=== PATIENT | male | born 1985 | race Caucasian/White ===

== ENCOUNTER 2016-07-14 23:11 | Inpatient (IN) | payer MEDICARE, OTHER ==
[~2016-07-14] VITALS: Ht 190.5 cm; Wt 68.0 kg
[2016-07-14] MEDS ORDERED: ABILIFY2 MG ORAL (23:15)
[2016-07-15] VITALS (13 sets, daily range): BP systolic 99–134; BP diastolic 47–83
[2016-07-15] MEDS ORDERED: Ketorolac 30mg Inj IV ONE (00:15)
[2016-07-15 00:28] LABS: EOSINOPHILS % (AUTO) 3.1 % (0.0-3.0); LYMPHOCYTES % (AUTO) 31.9 % (20.0-45.0); MEAN CORPUSCULAR HEMOGLOBIN 30.6 PG (27.0-31.0); MEAN CORPUSCULAR HGB CONC 33.8 G/DL (32.0-36.0); MEAN CORPUSCULAR VOLUME 91 FL (80-99); MEAN PLATELET VOLUME 8.1 FL (6.5-10.1); PLATELET COUNT 276 K/UL (150-450); RED BLOOD COUNT 5.22 M/UL (4.70-6.10); RED CELL DISTRIBUTION WIDTH 11.8 % (11.6-14.8); WHITE BLOOD COUNT 12.3 K/UL (4.8-10.8)
[2016-07-15 00:42] LABS: ALANINE AMINOTRANSFERASE 20 U/L (3-41); ALBUMIN/GLOBULIN RATIO 1.2 (1.0-2.7); ANION GAP 19 (5-15); ASPARTATE AMINO TRANSFERASE 25 U/L (5-40); CALCIUM 9.7 mg/dL (8.6-10.2); CARBON DIOXIDE 26 mEQ/L (20-30); CHLORIDE 94 mEQ/L (98-107); CREATININE 1.2 mg/dL (0.7-1.2); GLOMERULAR FILTRATION RATE > 60 mL/min (>60); HEMOLYSIS 40; LIPASE 23 U/L (< 60); POTASSIUM 4.1 mEQ/L (3.4-4.9); SODIUM 139 mEQ/L (135-145); TOTAL PROTEIN 7.9 g/dL (6.6-8.7)
--- NOTE | 2016-07-15 01:25 | Emergency Room Report ---
History of Present Illness General Chief Complaint: Abdominal Pain Source: Patient Present Illness HPI Patient present with complaints of left flank pain Ongoing for the past several hours Patient states that he was diagnosed with a kidney stone about 4 mm This was approximately 2 weeks ago Pain is 10 out of 10 Denies any chest pain or shortness of breath denies any diarrhea however he has had increased vomiting Doesn't have any pain associated with movement or rest denies any dysuria frequency denies any fevers Allergies: Coded Allergies: No Known Allergies (Unverified , 07/14/16) Patient History Past Medical History: see triage record Pertinent Family History: none Reviewed Nursing Documentation: PMH: Agreed, PSxH: Agreed Nursing Documentation-PMH Past Medical History: No History, Except For Review of Systems All Other Systems: negative except mentioned in HPI Physical Exam Vital Signs Date Time Temp Pulse Resp B/P Pulse Ox O2 Delivery O2 Flow Rate FiO2 07/14/16 23:09 98.2 100 16 150/90 97 Room Air Sp02 EP Interpretation: reviewed, normal General Appearance: moderate distress - Appears in acute pain Head: normocephalic, atraumatic Eyes: bilateral eye EOMI, bilateral eye PERRL ENT: normal pharynx, no angioedema Neck: full range of motion, supple, thyroid normal Respiratory: lungs clear, normal breath sounds Cardiovascular #1: regular rate, rhythm, no edema Gastrointestinal: soft, no mass, other - Colostomy bag in the left lower abdomen Genitourinary: CVA tenderness (R) Musculoskeletal: normal inspection Neurologic: alert, oriented x3, responsive, video control operator III-XII nml as tested Skin: no rash, warm/dry Lymphatic: no adenopathy Medical Decision Making Diagnostic Impression: Primary Impression: Obstructive uropathy ER Course With the history exam and presentation, multiple differentials considered, including but not limited to appendicitis, gastritis, kidney stone , cholecystitis, diverticulitis Patient's CT reveals an 11 mm stone the left side Patient was provided further pain medication IV hydration Patient did better however the pain continued Patient's urine sample otherwise does not show any obvious infectious pathology Blood work shows a white count of 12,000 which is mildly high Kidney functions otherwise appropriate patient was further hydrated and given the size and location of the kidney stone require admission for further care Labs Test 07/15/16 00:00 07/15/16 00:23 White Blood Count 12.3 K/UL (4.8-10.8) Red Blood Count 5.22 M/UL (4.70-6.10) Hemoglobin 16.0 G/DL (14.2-18.0) Hematocrit 47.3 % (42.0-52.0) Mean Corpuscular Volume 91 FL (80-99) Mean Corpuscular Hemoglobin 30.6 PG (27.0-31.0) Mean Corpuscular Hemoglobin Concent 33.8 G/DL (32.0-36.0) Red Cell Distribution Width 11.8 % (11.6-14.8) Platelet Count 276 K/UL (150-450) Mean Platelet Volume 8.1 FL (6.5-10.1) Neutrophils (%) (Auto) 56.0 % (45.0-75.0) Lymphocytes (%) (Auto) 31.9 % (20.0-45.0) Monocytes (%) (Auto) 8.0 % (1.0-10.0) Eosinophils (%) (Auto) 3.1 % (0.0-3.0) Basophils (%) (Auto) 1.0 % (0.0-2.0) Sodium Level 139 mEQ/L (135-145) Potassium Level 4.1 mEQ/L (3.4-4.9) Chloride Level 94 mEQ/L (98-107) Carbon Dioxide Level 26 mEQ/L (20-30) Anion Gap 19 (5-15) Blood Urea Nitrogen 14 mg/dL (7-23) Creatinine 1.2 mg/dL (0.7-1.2) Estimat Glomerular Filtration Rate > 60 mL/min (>60) Glucose Level 95 mg/dL (74-106) Calcium Level 9.7 mg/dL (8.6-10.2) Total Bilirubin 0.6 mg/dL (0.0-1.2) Aspartate Amino Transf (AST/SGOT) 25 U/L (5-40) Alanine Aminotransferase (ALT/SGPT) 20 U/L (3-41) Alkaline Phosphatase 115 U/L (40-129) Total Protein 7.9 g/dL (6.6-8.7) Albumin 4.4 g/dL (3.5-5.2) Globulin 3.5 g/dL Albumin/Globulin Ratio 1.2 (1.0-2.7) Lipase 23 U/L (< 60) Urine Color Yellow Urine Appearance Clear Urine pH 7 (4.5-8.0) Urine Specific [place] 1.010 (1.005-1.035) Urine Protein 1+ (NEGATIVE) Urine Glucose (UA) Negative (NEGATIVE) Urine Ketones Negative (NEGATIVE) Urine Occult Blood 2+ (NEGATIVE) Urine Nitrite Negative (NEGATIVE) Urine Bilirubin Negative (NEGATIVE) Urine Urobilinogen Normal MG/DL (0.0-1.0) Urine Leukocyte Esterase 1+ (NEGATIVE) Urine RBC 2-4 /HPF (0 - 0) Urine WBC 0-2 /HPF (0 - 0) Urine Squamous Epithelial Cells Few /LPF (NONE/OCC) Urine Bacteria Few /HPF (NONE) CT/MRI/US Diagnostic Results CT/MRI/US Diagnostic Results : Impression CT abdomen pelvis: Mild to moderate left hydro-uronephrosis with stone in the distal left ureter up to 11 mm Last Vital Signs Date Time Temp Pulse Resp B/P Pulse Ox O2 Delivery O2 Flow Rate FiO2 07/14/16 23:09 98.2 100 16 150/90 97 Room Air Status: improved Disposition: ADMITTED INPATIENT Condition: Serious SHERLY HAYNES D.O. Jul 15, 2016 01:25
[2016-07-15 01:48] LABS: APPEARANCE,URINE CLEAR; KETONES,URINE NEGATIVE (NEGATIVE); LEUKOCYTE ESTERASE ,URINE 1+ (NEGATIVE); NITRITE,URINE NEGATIVE (NEGATIVE); PH,URINE 7 (4.5-8.0); PROTEIN,URINE 1+ (NEGATIVE); UROBILINOGEN,URINE NORMAL MG/DL (0.0-1.0)
[2016-07-15 02:07] LABS: WBC,URINE 0-2 /HPF (0 - 0)
[2016-07-15 02:08] LABS: BACTERIA,URINE FEW /HPF; SQUAMOUS EPITHELIAL CELL,UR FEW /LPF (NONE/OCC)
[2016-07-15] MEDS ORDERED: Morphine Sulfate 4mg/ml Inj IVP ONE (02:15)
[2016-07-15] MEDS ORDERED: Mylanta II UD 30ml ORAL PRN (06:30)
[2016-07-15] MEDS ORDERED: Miralax 17gm pkt ORAL PRN (06:30)
[2016-07-15] MEDS ORDERED: Nitroglycerin Subl 0.4mg tab (Bottle Of 25) SL PRN (06:30)
[2016-07-15] MEDS: cefTRIAXone 1 GM in D5W 50 ML IVPB SCH (06:53)
[2016-07-15] MEDS: Morphine Sulfate 2mg/ml Inj IV PRN (06:54)
[2016-07-15] MEDS: Heparin 5000 units/ml inj SUBQ SCH ×3 (09:00→21:07)
[2016-07-15 10:53] LABS: APPEARANCE,URINE CLEAR; KETONES,URINE NEGATIVE (NEGATIVE); LEUKOCYTE ESTERASE ,URINE 1+ (NEGATIVE); NITRITE,URINE NEGATIVE (NEGATIVE); PH,URINE 6.5 (4.5-8.0); PROTEIN,URINE NEGATIVE (NEGATIVE); UROBILINOGEN,URINE NORMAL MG/DL (0.0-1.0)
[2016-07-15 11:18] LABS: BACTERIA,URINE FEW /HPF; RBC,URINE 0-2 /HPF (0 - 0); SQUAMOUS EPITHELIAL CELL,UR OCCASIONAL /LPF (NONE/OCC); WBC,URINE 0-2 /HPF (0 - 0)
--- NOTE | 2016-07-15 12:53 | Pre-Procedure Note/Attestation ---
Pre-Procedure Note/Attestation Complete Prior to Procedure Planned Procedure: left Procedure Narrative: cysto, left JJ stent Indications for Procedure Pre-Operative Diagnosis: left ureteral stone, left flank pain, left hydronephrosis Attestation I attest that I discussed the nature of the procedure; its benefits; risks and complications; and alternatives (and the risks and benefits of such alternatives ), prior to the procedure, with the patient (or the patient's legal dental sales representative). I attest that, if there was a reasonable possibility of needing a blood transfusion, the patient (or the patient's legal dental sales representative) was given the [facility] standardized written summary, pursuant to the Jamie Noreen Blood Safety Act ([place] Health and Safety Code # 1645, as amended). I attest that I re-evaluated the patient just prior to the surgery and that there has been no change in the patient's H&P, except as documented below: Casimiro Damian M.D. Jul 15, 2016 12:53
--- NOTE | 2016-07-15 12:59 | Consultation ---
History of Present Illness General Date patient seen: Jul 15, 2016 Time patient seen: 10:15 Chief Complaint: Abdominal Pain Reason for Consultation: left ureteral stone Present Illness HPI Acute left flank pain. Patient had a kidney stone several months ago. Last night noted severe left flank pain, nausea, vomiting. Dx with distal left ureteral stone, significant hydro. WBC elevated. Unable to manage conservatively in ER. Currently in a lot of pain. Allergies: Coded Allergies: No Known Allergies (Unverified , 07/14/16) Medication History Scheduled Aripiprazole* (Abilify*), 2 MG ORAL DAILY, (Reported) Patient History History Provided By: Patient Healthcare decision maker Resuscitation status Full Code Advanced Directive on File Past Medical/Surgical History Past Medical/Surgical History: (1) Anxiety and depression Review of Systems Constitutional: Reports: weakness Eye: Denies: acuity changes, blurred vision, discharge, double vision, eye pain , no symptoms, nose congestion, nose pain, other, see HPI, tearing ENT: Denies: ear discharge, ear pain, hearing loss, mouth pain, nasal discharge , no symptoms, nose congestion, nose pain, other, see HPI, throat pain, throat swelling Respiratory: Denies: LUND, cough, no symptoms, orthopnea, other, see HPI, shortness of breath, sputum, stridor, wheezing Cardiovascular: Denies: PND, chest pain, edema, no symptoms, other, palpitations, see HPI, syncope Gastrointestinal: Reports: abdominal pain, Denies: constipation, diarrhea, hematemesis, melena, nausea, no symptoms, other, see HPI, vomiting Genitourinary: Denies: discharge, dysuria, frequency, hematuria, incontinence, no symptoms, other, pain, retention, see HPI, urgency, vag bleed/dc Musculoskeletal: Denies: back pain, gout, joint pain, joint swelling, muscle pain, muscle stiffness, no symptoms, other, see HPI Skin: Denies: change in color, change in hair/nails, dryness, lesions, no symptoms, other, rash, see HPI Psychiatric: Denies: HI, SI, anxiety, depressed feelings, emotional problems, hallucinations, no symptoms, other, prior hx, see HPI Neurological: Denies: dizziness, focal weakness, headache, no symptoms, numbness, other, paresthesia, see HPI, seizure, syncope, tingling, tremors Endocrine: Denies: excessive sweating, flushing, increased thirst, increased urine, intolerance to temperature, no symptoms, other, see HPI, unexplained weight loss Hematologic/Lymphatic: Denies: anemia, blood clots, diathesis, easy bleeding, easy bruising, no symptoms, other, see HPI, swollen glands Physical Exam General Appearance: moderate distress Respiratory/Chest: lungs clear Cardiovascular/Chest: normal rate Abdomen: non tender, soft Last 24 Hour Vital Signs Date Time Temp Pulse Resp B/P Pulse Ox O2 Delivery O2 Flow Rate FiO2 07/15/16 08:00 97.7 54 17 99/70 97 Room Air 07/15/16 04:00 97.7 50 20 113/54 100 Room Air 07/15/16 03:15 97.7 55 20 122/62 97 Room Air 07/15/16 03:03 98.4 07/15/16 03:02 98.4 72 16 134/82 98 Room Air 07/15/16 03:00 97.7 57 18 122/62 96 Room Air 07/15/16 02:23 98.4 72 16 134/82 98 Room Air 07/15/16 02:09 98.2 07/14/16 23:09 98.2 100 16 150/90 97 Room Air Intake and Output 07/14/16 07/15/16 19:00 07:00 Intake Total 1000 ml Balance 1000 ml Intake IV Total 1000 ml # Voids 1 Laboratory Tests Test 07/15/16 00:00 07/15/16 00:23 07/15/16 10:13 White Blood Count 12.3 K/UL (4.8-10.8) H Red Blood Count 5.22 M/UL (4.70-6.10) Hemoglobin 16.0 G/DL (14.2-18.0) Hematocrit 47.3 % (42.0-52.0) Mean Corpuscular Volume 91 FL (80-99) Mean Corpuscular Hemoglobin 30.6 PG (27.0-31.0) Mean Corpuscular Hemoglobin Concent 33.8 G/DL (32.0-36.0) Red Cell Distribution Width 11.8 % (11.6-14.8) Platelet Count 276 K/UL (150-450) Mean Platelet Volume 8.1 FL (6.5-10.1) Neutrophils (%) (Auto) 56.0 % (45.0-75.0) Lymphocytes (%) (Auto) 31.9 % (20.0-45.0) Monocytes (%) (Auto) 8.0 % (1.0-10.0) Eosinophils (%) (Auto) 3.1 % (0.0-3.0) H Basophils (%) (Auto) 1.0 % (0.0-2.0) Sodium Level 139 mEQ/L (135-145) Potassium Level 4.1 mEQ/L (3.4-4.9) Chloride Level 94 mEQ/L (98-107) L Carbon Dioxide Level 26 mEQ/L (20-30) Anion Gap 19 (5-15) H Blood Urea Nitrogen 14 mg/dL (7-23) Creatinine 1.2 mg/dL (0.7-1.2) Estimat Glomerular Filtration Rate > 60 mL/min (>60) Glucose Level 95 mg/dL (74-106) Calcium Level 9.7 mg/dL (8.6-10.2) Total Bilirubin 0.6 mg/dL (0.0-1.2) Aspartate Amino Transf (AST/SGOT) 25 U/L (5-40) Alanine Aminotransferase (ALT/SGPT) 20 U/L (3-41) Alkaline Phosphatase 115 U/L (40-129) Total Protein 7.9 g/dL (6.6-8.7) Albumin 4.4 g/dL (3.5-5.2) Globulin 3.5 g/dL Albumin/Globulin Ratio 1.2 (1.0-2.7) Lipase 23 U/L (< 60) Urine Color Yellow Yellow Urine Appearance Clear Clear Urine pH 7 (4.5-8.0) 6.5 (4.5-8.0) Urine Specific [place] 1.010 (1.005-1.035) 1.015 (1.005-1.035) Urine Protein 1+ (NEGATIVE) H Negative (NEGATIVE) Urine Glucose (UA) Negative (NEGATIVE) Negative (NEGATIVE) Urine Ketones Negative (NEGATIVE) Negative (NEGATIVE) Urine Occult Blood 2+ (NEGATIVE) H 1+ (NEGATIVE) H Urine Nitrite Negative (NEGATIVE) Negative (NEGATIVE) Urine Bilirubin Negative (NEGATIVE) Negative (NEGATIVE) Urine Urobilinogen Normal MG/DL (0.0-1.0) Normal MG/DL (0.0-1.0) Urine Leukocyte Esterase 1+ (NEGATIVE) H 1+ (NEGATIVE) H Urine RBC 2-4 /HPF (0 - 0) H 0-2 /HPF (0 - 0) H Urine WBC 0-2 /HPF (0 - 0) 0-2 /HPF (0 - 0) Urine Squamous Epithelial Cells Few /LPF (NONE/OCC) Occasional /LPF Urine Bacteria Few /HPF (NONE) Few /HPF (NONE) Height (Feet): 6 Height (Inches): 3.00 Weight (Pounds): 150 Medications Current Medications Medications (Trade) Dose Ordered Sig/Tylor Route PRN Reason Start Time Stop Time Status Last Admin Dose Admin Acetaminophen (Tylenol) 650 mg Q4H PRN ORAL fever 07/15/16 06:30 08/14/16 06:29 Al Hydroxide/Mg Hydroxide (Mylanta II) 30 ml Q6H PRN ORAL dyspepsia 07/15/16 06:30 08/14/16 06:29 Ceftriaxone Sodium/Dextrose (Rocephin/D5W 50ml) 50 ml @ 100 mls/hr Q24H IVPB 07/15/16 06:30 07/22/16 06:29 07/15/16 06:53 Dextrose (Dextrose 50%) STAT PRN IV Hypoglycemia 07/15/16 06:30 08/14/16 06:29 Dextrose/Sodium Chloride (D5 0.45% NS) 1,000 ml @ 75 mls/hr [id number] IV 07/15/16 17:40 08/14/16 17:39 Diphenhydramine HCl (Benadryl) 25 mg Q6H PRN ORAL Itching/Pruritis 07/15/16 06:30 08/14/16 06:29 Heparin Sodium (Porcine) (Heparin 5000 units/ml) 5,000 units EVERY 12 HOURS SUBQ 07/15/16 09:00 08/14/16 08:59 Morphine Sulfate (Morphine Sulfate) 2 mg Q4H PRN IVP Pain (Pain Scale 4-6) 07/15/16 06:30 07/22/16 06:29 Morphine Sulfate 4 mg 4 mg Q2H PRN IV For Pain (7-10) 07/15/16 06:30 07/22/16 06:29 07/15/16 06:54 Nitroglycerin (Ntg) 0.4 mg Q5M X 3 DOSES PRN SL Prn Chest Pain 07/15/16 06:30 08/14/16 06:29 Ondansetron HCl (Zofran) 4 mg Q6H PRN IVP Nausea & Vomiting 07/15/16 06:30 2 06:29 Polyethylene Glycol (Miralax) 17 gm HSPRN PRN ORAL Constipation 07/15/16 06:30 08/14/16 06:29 Temazepam (Restoril) 15 mg HSPRN PRN ORAL Insomnia 07/15/16 06:30 07/22/16 06:[address] Abd/pelvis: left distal ureteral stone, 4 x 8 mm, left hydro Assessment/Plan Status: stable Assessment/Plan 31 yo male with severe left flank pain, large distal ureteral stone. Failed conservative management in ER. Counseled patient on intervention options. Willing to proceed with urgent left stent placement with definitive treatment at a later time. 1. cysto left JJ stent today 2. Casimiro Mcclain M.D. Jul 15, 2016 12:59
[2016-07-15] MEDS ORDERED: LR 1000ml ONE (13:00)
[2016-07-15] MEDS ORDERED: NS Irrig 4000ml IRRIG ONE ×2 (13:00→13:10)
[2016-07-15] MEDS ORDERED: fentaNYL 100 mcg/2 mL IV ONE (13:00)
[2016-07-15] MEDS ORDERED: Propofol 10mg/ml 20ml IV ONE ×2 (13:00→13:11)
[2016-07-15] MEDS ORDERED: Midazolam 2mg/2ml Inj ONE (13:00)
[2016-07-15] MEDS ORDERED: Iothalamate Meglumine 60% 30ML INJ ONE (13:44)
[2016-07-15] MEDS ORDERED: Isovue-M 300 INJ ONE (13:44)
[2016-07-15] MEDS ORDERED: LR 1000ml 1,000 ML IVLG SCH (13:50)
--- NOTE | 2016-07-15 13:55 | Anethesia Preoperative Eval ---
Anesthesia Pre-op PMH/ROS General Date of Evaluation: Jul 15, 2016 Time of Evaluation: 13:10 Anesthesiologist: Tammy ASA Score: ASA 2 Mallampati Score Class I : Soft palate, uvula, fauces, pillars visible Class II: Soft palate, uvula, fauces visible Class III: Soft palate, base of uvula visible Class IV: Only hard plate visible Mallampati Classification: Class I Surgeon: Rickie Diagnosis: Obstructive uropathy Surgical Procedure: Cystoscopy, ureteral stent placement Social History: current smoker Allergies: Coded Allergies: No Known Allergies (Unverified , 07/14/16) Medications: see eMAR Past Medical History Cardiovascular: Denies: CAD, HTN, [place], arrhythmia, other, valve dz Pulmonary: Denies: COPD, ZOIE, asthma, other Gastrointestinal/Genitourinary: Reports: other - Renal lithiasis, Denies: CRI, ESRD, GERD Neurologic/Psychiatric: Reports: depression/anxiety, Denies: CVA, TIA, dementia, other Endocrine: Denies: DM, hypothyroidism, other, steroids HEENT: Denies: [place] (L), [place] (R), cataract (L), cataract (R), glaucoma, other Hematology/Immune: Denies: DVT, anemia, bleeding disorder, other Musculoskeletal/Integumentary: Denies: DDD, DJD, OA, RA, edema, other PMH Narrative: Renal lithiasis, depression PSxH Narrative: Colon resection and stoma Anesthesia Pre-op Phys. Exam Physician Exam Last Vital Signs Date Time Temp Pulse Resp B/P Pulse Ox O2 Delivery O2 Flow Rate FiO2 07/15/16 08:00 97.7 54 17 99/70 97 Room Air Constitutional: NAD Neurologic: CN 2-12 intact Cardiovascular: RRR, no M/R/G Respiratory: CTA Gastrointestinal: S/NT/ND Airway Exam Mallampati Score: Class I MO: full ROM: full Teeth: intact Anesthesia Pre-op A/P Labs Hematology Test 07/15/16 00:00 White Blood Count 12.3 K/UL (4.8-10.8) H Red Blood Count 5.22 M/UL (4.70-6.10) Hemoglobin 16.0 G/DL (14.2-18.0) Hematocrit 47.3 % (42.0-52.0) Mean Corpuscular Volume 91 FL (80-99) Mean Corpuscular Hemoglobin 30.6 PG (27.0-31.0) Mean Corpuscular Hemoglobin Concent 33.8 G/DL (32.0-36.0) Red Cell Distribution Width 11.8 % (11.6-14.8) Platelet Count 276 K/UL (150-450) Mean Platelet Volume 8.1 FL (6.5-10.1) Neutrophils (%) (Auto) 56.0 % (45.0-75.0) Lymphocytes (%) (Auto) 31.9 % (20.0-45.0) Monocytes (%) (Auto) 8.0 % (1.0-10.0) Eosinophils (%) (Auto) 3.1 % (0.0-3.0) H Basophils (%) (Auto) 1.0 % (0.0-2.0) Chemistry Test 07/15/16 00:00 Sodium Level 139 mEQ/L (135-145) Potassium Level 4.1 mEQ/L (3.4-4.9) Chloride Level 94 mEQ/L (98-107) L Carbon Dioxide Level 26 mEQ/L (20-30) Anion Gap 19 (5-15) H Blood Urea Nitrogen 14 mg/dL (7-23) Creatinine 1.2 mg/dL (0.7-1.2) Estimat Glomerular Filtration Rate > 60 mL/min (>60) Glucose Level 95 mg/dL (74-106) Calcium Level 9.7 mg/dL (8.6-10.2) Total Bilirubin 0.6 mg/dL (0.0-1.2) Aspartate Amino Transf (AST/SGOT) 25 U/L (5-40) Alanine Aminotransferase (ALT/SGPT) 20 U/L (3-41) Alkaline Phosphatase 115 U/L (40-129) Total Protein 7.9 g/dL (6.6-8.7) Albumin 4.4 g/dL (3.5-5.2) Globulin 3.5 g/dL Albumin/Globulin Ratio 1.2 (1.0-2.7) Lipase 23 U/L (< 60) Risk Assessment & Plan Assessment: Obstructive uropathy Plan: GA, LMA Status Change Before Surgery: No Pre-Antibiotics Drug: Ancef Given Within 1 Hr of Incision: Yes Time Given: 13:30 LUDMILA ANAYA M.D. Jul 15, 2016 13:55
--- NOTE | 2016-07-15 13:56 | Immediate Post-Op Evaluation ---
Immediate Post-Op Evalulation Immediate Post-Op Evalulation Procedure: Cystoscopy, ureteral stent placement Date of Evaluation: Jul 15, 2016 Time of Evaluation: 14:28 IV Fluids: 600 Blood Pressure Systolic: 106 Blood Pressure Diastolic: 56 Pulse Rate: 74 Respiratory Rate: 15 O2 Sat by Pulse Oximetry: 100 Temperature (Fahrenheit): 97.7 Pain Score (1-10): 0 Nausea: No Vomiting: No Complications No complication Patient Status: reacts, patent, none Hydration Status: adequate Drug: Ancef Given Within 1 Hr of Incision: Yes Time Given: 13:30 LUDMILA ANAYA M.D. Jul 15, 2016 13:56
[2016-07-15] MEDS ORDERED: LORazepam Inj 2mg/ml 1ml IV PRN (14:00)
[2016-07-15] MEDS ORDERED: Hydromorphone 0.5mg/0.5ml inj IVP PRN (14:00)
--- NOTE | 2016-07-15 14:07 | Brief Operative Note ---
Immediate Post Operative Note Operative Note Pre-op Diagnosis: left ureteral stone, left flank pain, left hydronephrosis Procedure: cysto left ureteral stent placement, left retrograde pyelogram Post-op Diagnosis: same as pre-op Findings: consistent w/pre-op dx studies Surgeon: francisco j Anesthesia: general Specimen: none Complications: none Condition: stable Estimated Blood Loss: none Drains: other - 6x24 JJ stent Implant(s) used?: Yes Casimiro Damian M.D. Jul 15, 2016 14:07
--- NOTE | 2016-07-15 14:35 | History and Physical ---
History of Present Illness General Date patient seen: Jul 15, 2016 Reason for Hospitalization: Abdominal Pain Present Illness HPI The patient is a 31-year-old male, who presents to ED complaining of left flank pain that has been ongoing for the past several hours. ER evaluation reveals a kidney stone approximately two weeks ago, pain is 10/10, and also with increased vomiting. Evaluation at ED revealed elevated WBC. CAT scan of the abdomen showed a 11 mm stone on the left ureter with hydronephrosis. Allergies: Coded Allergies: No Known Allergies (Unverified , 07/14/16) Medication History Scheduled Aripiprazole* (Abilify*), 2 MG ORAL DAILY, (Reported) Patient History Healthcare decision maker Resuscitation status Full Code Advanced Directive on File Review of Systems Constitutional: Reports: malaise, weakness Gastrointestinal: Reports: abdominal pain, nausea, vomiting Musculoskeletal: Reports: back pain, muscle pain, muscle stiffness All Other Systems: negative except mentioned in HPI Physical Exam General Appearance: WD/WN Lines, tubes and drains: peripheral HEENT: normocephalic, atraumatic Neck: non-tender, normal alignment Respiratory/Chest: chest wall non-tender, lungs clear Cardiovascular/Chest: normal peripheral pulses, normal rate Abdomen: normal bowel sounds Genitourinary/Rectal: normal genital exam, normal prostate exam Extremities: non-tender Last 24 Hour Vital Signs Date Time Temp Pulse Resp B/P Pulse Ox O2 Delivery O2 Flow Rate FiO2 07/15/16 14:25 56 12 105/47 100 Simple Mask 6.0 07/15/16 14:23 74 15 100 07/15/16 14:18 97.8 52 13 117/83 100 Simple Mask 6.0 07/15/16 08:00 97.7 54 17 99/70 97 Room Air 07/15/16 04:00 97.7 50 20 113/54 100 Room Air 07/15/16 03:15 97.7 55 20 122/62 97 Room Air 07/15/16 03:03 98.4 07/15/16 03:02 98.4 72 16 134/82 98 Room Air 07/15/16 03:00 97.7 57 18 122/62 96 Room Air 07/15/16 02:23 98.4 72 16 134/82 98 Room Air 07/15/16 02:09 98.2 07/14/16 23:09 98.2 100 16 150/90 97 Room Air Intake and Output 07/14/16 07/15/16 19:00 07:00 Intake Total 1000 ml Balance 1000 ml Intake IV Total 1000 ml # Voids 1 Laboratory Tests Test 07/15/16 00:00 07/15/16 00:23 07/15/16 10:13 White Blood Count 12.3 K/UL (4.8-10.8) H Red Blood Count 5.22 M/UL (4.70-6.10) Hemoglobin 16.0 G/DL (14.2-18.0) Hematocrit 47.3 % (42.0-52.0) Mean Corpuscular Volume 91 FL (80-99) Mean Corpuscular Hemoglobin 30.6 PG (27.0-31.0) Mean Corpuscular Hemoglobin Concent 33.8 G/DL (32.0-36.0) Red Cell Distribution Width 11.8 % (11.6-14.8) Platelet Count 276 K/UL (150-450) Mean Platelet Volume 8.1 FL (6.5-10.1) Neutrophils (%) (Auto) 56.0 % (45.0-75.0) Lymphocytes (%) (Auto) 31.9 % (20.0-45.0) Monocytes (%) (Auto) 8.0 % (1.0-10.0) Eosinophils (%) (Auto) 3.1 % (0.0-3.0) H Basophils (%) (Auto) 1.0 % (0.0-2.0) Sodium Level 139 mEQ/L (135-145) Potassium Level 4.1 mEQ/L (3.4-4.9) Chloride Level 94 mEQ/L (98-107) L Carbon Dioxide Level 26 mEQ/L (20-30) Anion Gap 19 (5-15) H Blood Urea Nitrogen 14 mg/dL (7-23) Creatinine 1.2 mg/dL (0.7-1.2) Estimat Glomerular Filtration Rate > 60 mL/min (>60) Glucose Level 95 mg/dL (74-106) Calcium Level 9.7 mg/dL (8.6-10.2) Total Bilirubin 0.6 mg/dL (0.0-1.2) Aspartate Amino Transf (AST/SGOT) 25 U/L (5-40) Alanine Aminotransferase (ALT/SGPT) 20 U/L (3-41) Alkaline Phosphatase 115 U/L (40-129) Total Protein 7.9 g/dL (6.6-8.7) Albumin 4.4 g/dL (3.5-5.2) Globulin 3.5 g/dL Albumin/Globulin Ratio 1.2 (1.0-2.7) Lipase 23 U/L (< 60) Urine Color Yellow Yellow Urine Appearance Clear Clear Urine pH 7 (4.5-8.0) 6.5 (4.5-8.0) Urine Specific [place] 1.010 (1.005-1.035) 1.015 (1.005-1.035) Urine Protein 1+ (NEGATIVE) H Negative (NEGATIVE) Urine Glucose (UA) Negative (NEGATIVE) Negative (NEGATIVE) Urine Ketones Negative (NEGATIVE) Negative (NEGATIVE) Urine Occult Blood 2+ (NEGATIVE) H 1+ (NEGATIVE) H Urine Nitrite Negative (NEGATIVE) Negative (NEGATIVE) Urine Bilirubin Negative (NEGATIVE) Negative (NEGATIVE) Urine Urobilinogen Normal MG/DL (0.0-1.0) Normal MG/DL (0.0-1.0) Urine Leukocyte Esterase 1+ (NEGATIVE) H 1+ (NEGATIVE) H Urine RBC 2-4 /HPF (0 - 0) H 0-2 /HPF (0 - 0) H Urine WBC 0-2 /HPF (0 - 0) 0-2 /HPF (0 - 0) Urine Squamous Epithelial Cells Few /LPF (NONE/OCC) Occasional /LPF Urine Bacteria Few /HPF (NONE) Few /HPF (NONE) Height (Feet): 6 Height (Inches): 3.00 Weight (Pounds): 150 Medications Current Medications Medications (Trade) Dose Ordered Sig/Tylor Route PRN Reason Start Time Stop Time Status Last Admin Dose Admin Acetaminophen (Tylenol) 650 mg Q4H PRN ORAL fever 07/15/16 06:30 2 06:29 Al Hydroxide/Mg Hydroxide (Mylanta II) 30 ml Q6H PRN ORAL dyspepsia 07/15/16 06:30 2 06:29 Ceftriaxone Sodium/Dextrose (Rocephin/D5W 50ml) 50 ml @ 100 mls/hr Q24H IVPB 07/15/16 06:30 07/22/16 06:29 07/15/16 06:53 Dextrose (Dextrose 50%) STAT PRN IV Hypoglycemia 07/15/16 06:30 08/14/16 06:29 Dextrose/Sodium Chloride (D5 0.45% NS) 1,000 ml @ 75 mls/hr [id number] IV 07/15/16 17:40 08/14/16 17:39 Diphenhydramine HCl (Benadryl) 25 mg Q6H PRN ORAL Itching/Pruritis 07/15/16 06:30 08/14/16 06:29 Heparin Sodium (Porcine) (Heparin 5000 units/ml) 5,000 units EVERY 12 HOURS SUBQ 07/15/16 09:00 08/14/16 08:59 Hydromorphone HCl (Dilaudid) 0.5 mg Q15M PRN IVP Severe Pain (Pain Scale 7-10) 07/15/16 14:00 UNV Lactated Ringer's (Lactated Ringer's 1000ml) 1,000 ml @ 10 mls/hr Q24H IVLG 07/15/16 13:50 07/15/16 15:49 UNV Lorazepam (Ativan 2mg/ml 1ml) 0.5 mg Q15M PRN IV For Anxiety 07/15/16 14:00 UNV Morphine Sulfate (Morphine Sulfate) 2 mg Q4H PRN IVP Pain (Pain Scale 4-6) 07/15/16 06:30 07/22/16 06:29 Morphine Sulfate 4 mg 4 mg Q2H PRN IV For Pain (7-10) 07/15/16 06:30 07/22/16 06:29 07/15/16 06:54 Nitroglycerin (Ntg) 0.4 mg Q5M X 3 DOSES PRN SL Prn Chest Pain 07/15/16 06:30 08/14/16 06:29 Ondansetron HCl (Zofran) 4 mg Q6H PRN IVP Nausea & Vomiting 07/15/16 06:30 08/14/16 06:29 Ondansetron HCl 4 mg 4 mg Q1H PRN IVP Nausea & Vomiting 07/15/16 14:00 UNV Phenazopyridine HCl (Pyridium) 200 mg THREE TIMES A DAY PRN ORAL dysuria 07/15/16 18:00 2/9/17 17:59 Polyethylene Glycol (Miralax) 17 gm HSPRN PRN ORAL Constipation 07/15/16 06:30 08/14/16 06:29 Temazepam (Restoril) 15 mg HSPRN PRN ORAL Insomnia 07/15/16 06:30 07/22/16 06:29 Assessment/Plan Problem List: (1) Obstructive uropathy ICD Codes: N13.9 - Obstructive and reflux uropathy, unspecified SNOMED: 8123423 (2) Anxiety and depression ICD Codes: F41.9 - Anxiety disorder, unspecified; F32.9 - Major depressive disorder, single episode, unspecified SNOMED: 912095768 Status: stable, progressing Assessment/Plan iv hydration IV narcotics pain control evaluation check electrolytes AMY ZAMAN Jul 15, 2016 14:35
--- NOTE | 2016-07-15 15:01 | Diagnostic Imaging Report ---
Indication: Pain Comparison: None Findings: Fluoroscopic images showing placement of a left ureteral stent on multiple images. Both proximal and distal ends appear in good position. Impression: Retrograde placement of a double-J ureteral stent on the left side.
[2016-07-15] MEDS: D5 1/2NS 1,000 ML IV SCH (17:54)
[2016-07-15] MEDS: Morphine Sulfate 2mg/ml Inj IVP PRN ×2 (17:56→22:25)
[2016-07-15] MEDS ORDERED: Phenazopyridine 200mg tab ORAL PRN (18:00)
[2016-07-16] VITALS: BP 110/54
[2016-07-16] MEDS: Morphine Sulfate 2mg/ml Inj IV PRN (02:35)
[2016-07-16 04:00] VITALS: BP 117/75
[2016-07-16] MEDS: cefTRIAXone 1 GM in D5W 50 ML IVPB SCH (05:12)
--- NOTE | 2016-07-16 05:57 | Operative Note - Dictated ---
DATE OF OPERATION: 07/15/2016 PRIMARY SURGEON: Casimiro Damian M.D. PREOPERATIVE DIAGNOSES: Left ureteral stone with flank pain, nausea, and vomiting. POSTOPERATIVE DIAGNOSES: Left ureteral stone with flank pain, nausea, and vomiting. PROCEDURE PERFORMED: Cystoscopy with left retrograde pyelogram and left double-J stent placement. ANESTHESIA: General. EBL: Minimal. COMPLICATIONS: None. DRAINS: A 6 x 24 double-J stent. SPECIMEN: None. PREOPERATIVE HISTORY: The patient is a very pleasant 31-year-old gentleman with a slightly strange affect, possibly due to pain. He was admitted to the hospital for severe left flank pain, nausea, and vomiting from the 4 x 8 mm distal ureteral stone. The patient has failed conservative management. He was admitted for intervention and pain control and IV rehydration. The patient was counseled on risks and benefits of intervention, risks including, but not limited to bleeding, infection, bladder injury, and ureteral injury. He was made clear that persistent obstruction of his kidney with resultant renal failure and potentially pyelonephritis and possible sepsis. The patient was nervous, but understood the risks and was willing to proceed with the stent placement. He understood that a second procedure will most likely be required for appropriate lithotripsy as the stone is quite large and may not pass the stent alone. The patient understands that this would be a temporizing measure allowing him to go home and come back for an elective procedure at a later time. The patient understood the risks and benefits of the procedure. Risks including, but not limited to bleeding, infection, bladder injury, ureteral injury, urethral injury, need for further surgery. The patient understood the risks, signed the consent, was taken to the operating room. OPERATIVE PROCEDURE: The patient was brought to the operating room where general anesthesia was achieved easily. He is placed in the dorsal lithotomy position. All pressure points were padded. The perineum was prepped and draped in sterile fashion. He received 1 g of IV Ancef as preoperative antibiotics. A 21-Turkmen cystoscope sheath was placed. The anterior urethra was normal. The posterior urethra was normal. Bladder was entered showing some mild mucus, but no bleeding areas, tumors, masses, or lesions were seen. Political Analyst fluoroscopy revealed no obvious stone fragments in the pelvis or in the area of the renal fossa. The left ureteral orifice was intubated with a 6-Turkmen ureteral catheter. Retrograde pyelogram that is not showing a J hooking distal intravesical ureter with immediate hydronephrosis and a large filling defect noted in the distal ureter likely to be the stone. A 0.35 Glidewire was used to navigate beyond the stone and coiled in the upper collecting system. The ureteral catheter was exchanged a 6 x 24 double-J stent was then advanced up to the collecting system with excellent coil was seen at the fluoroscopy and an excellent coil was seen under direct vision via camera after the wire was removed. The stent started to drain immediately debris ____ urine. The wire was removed. Bladder was emptied and the scope was removed. The patient tolerated the procedure well. He was woken up and taken to recovery room in stable fashion. I was present for the entire procedure. All instrument counts were correct at the end of the case. PLAN: 1. The patient will be observed today. 2. Should be able to go home tomorrow. 3. Followup in 1 week to assess passage of stone and discuss definitive lithotripsy plans. Casimiro Damian DR: Kandi JOB#: [id number] CC:
[2016-07-16 07:18] LABS: ALANINE AMINOTRANSFERASE 12 U/L (3-41); ALBUMIN/GLOBULIN RATIO 1.1 (1.0-2.7); AMYLASE 62 U/L (10-110); ANION GAP 10 (5-15); ASPARTATE AMINO TRANSFERASE 15 U/L (5-40); CALCIUM 8.8 mg/dL (8.6-10.2); CARBON DIOXIDE 30 mEQ/L (20-30); CHLORIDE 101 mEQ/L (98-107); GLOMERULAR FILTRATION RATE > 60 mL/min (>60); HEMOLYSIS 3; LIPASE 19 U/L (< 60); POTASSIUM 4.6 mEQ/L (3.4-4.9); SODIUM 141 mEQ/L (135-145); TOTAL PROTEIN 6.6 g/dL (6.6-8.7)
--- NOTE | 2016-07-16 07:19 | 48 Hour Post Anesthesia Eval ---
Post Anesthesia Evaluation Procedure: Cystoscopy, ureteral stent placement Date of Evaluation: Jul 16, 2016 Time of Evaluation: 07:03 Blood Pressure Systolic: 117 0: 75 Pulse Rate: 45 Respiratory Rate: 18 Temperature (Fahrenheit): 96.8 O2 Sat by Pulse Oximetry: 100 Airway: patent Nausea: No Vomiting: No Pain Intensity: 2 Hydration Status: adequate Cardiopulmonary Status: Stable Mental Status/LOC: patient returned to baseline Follow-up Care/Observations: 0 Post-Anesthesia Complications: 0 Follow-up care needed: N/A Bonilla Manzanares MD Jul 16, 2016 07:19
[2016-07-16 07:25] LABS: BASOPHILS % (AUTO) 0.9 % (0.0-2.0); EOSINOPHILS % (AUTO) 3.6 % (0.0-3.0); LYMPHOCYTES % (AUTO) 35.3 % (20.0-45.0); MEAN CORPUSCULAR HEMOGLOBIN 30.4 PG (27.0-31.0); MEAN CORPUSCULAR HGB CONC 32.6 G/DL (32.0-36.0); MEAN CORPUSCULAR VOLUME 93 FL (80-99); MEAN PLATELET VOLUME 8.9 FL (6.5-10.1); MONOCYTES % (AUTO) 9.5 % (1.0-10.0); NEUTROPHILS % (AUTO) 50.7 % (45.0-75.0); PLATELET COUNT 223 K/UL (150-450); RED BLOOD COUNT 4.22 M/UL (4.70-6.10); WHITE BLOOD COUNT 8.1 K/UL (4.8-10.8)
[2016-07-16] MEDS: D5 1/2NS 1,000 ML IV SCH (08:17)
[2016-07-16] MEDS: Morphine Sulfate 2mg/ml Inj IVP PRN (08:17)
[2016-07-16] MEDS: Heparin 5000 units/ml inj SUBQ SCH (08:18)
[2016-07-16 08:26] VITALS: BP 120/74
--- NOTE | 2016-07-17 12:02 | Discharge Summary ---
Discharge Summary Hospital Course Date of Admission Jul 15, 2016 at 01:52 Date of Discharge Jul 16, 2016 at 12:15 Admitting Diagnosis obstructive uropathy HPI Eliseo Abdi is a 31 year old male who was admitted on Jul 15, 2016 at 01:52 for Obstructive Uropathy Hospital Course [id number] Discharge Discharge Disposition Patient was discharged to Home (01) Discharge Diagnoses: Nellie Cordoba NP Jul 17, 2016 12:02
--- NOTE | 2016-07-17 19:18 | Discharge Summary 2 SIG ---
DATE OF ADMISSION: 07/15/2016 DATE OF DISCHARGE: 07/16/2016 BRIEF HOSPITAL COURSE: The patient is a 31-year-old male, who presented to ED complaining of left flank pain that has been ongoing for the past several hours. He was diagnosed with a kidney stone approximately two weeks ago, pain is 10/10, and also with increased vomiting. Evaluation at ED revealed elevated WBC. CAT scan of the abdomen showed a 11 mm stone on the left ureter with hydronephrosis. He was given hydration and given the size and location of kidney stone, was admitted for further care. Dr. Damian was consulted and underwent a cystoscopy with left retrograde pyelogram and ureteral stent placement on 07/15/2016. Discussed, a second procedure will most likely be required for appropriate lithotripsy. Stone is quite large and may not pass the stent alone. The procedure was a temporary measure for an elective procedure at a later time. He tolerated the procedure well and was discharged home following day due to rapid and unexpected improvement in the patient's symptoms. He was advised to follow up in one week to assess passage of stone and to discuss definite lithotripsy plans. FINAL DIAGNOSIS: Abdominal pain secondary to left distal ureteral stone with left hydronephrosis status post cystoscopy with left retrograde pyelogram and left double-J stent placement. Sridhar Rodriguez M.D. I have been assigned to dictate discharge summary on this account. I was not involved in the patient's management. Nellie Cordoba N.P. DR: SIERRA JOB#: [id number] CC: LYNNE
--- NOTE | 2016-07-22 14:57 | Diagnostic Imaging Report ---
Indications: Abdominal pain Technique: Continuous helical CT imaging of the abdomen and pelvis was performed with automatic exposure control on a Siemens sensation [address] scanner. Axial, coronal, and sagittal images were reconstructed at 3 mm slice thickness. No oral or IV contrast was administered per requesting physician's order, despite no contraindications listed in either submitted clinical data or tech note.. CTDI volume(s): 10 mGy Total DLP: 469 mGy-cm Findings: Comparison: None. 5 x 11 mm stone distal aspect left ureter several centimeters above the ureterovesical junction. Left ureter and renal collecting system above this mildly dilated with mild surrounding stranding. No additional stones bilaterally. Right renal collecting system and ureter nondilated. Urinary bladder partially distended, unremarkable.. The appendix is unremarkable. The gastrointestinal tract is normal in caliber. Left lower quadrant colostomy. No extraluminal gas or fluid collections are demonstrated. Remainder of visualized abdominopelvic anatomy demonstrates no other obvious abnormality, though lack of oral and IV contrast limits evaluation. Lung bases and adjacent pleural surfaces are clear. No focal skeletal abnormalities demonstrated. IMPRESSION: 5 x 11 mm obstructing stone distal left ureter with mild hydronephrosis and perinephric stranding. Superimposed infection not excludable.. Unremarkable appendix -- no evidence of acute appendicitis. No other evidence of acute abdominopelvic disease. Lack of oral and IV contrast limits evaluation, however, and subtle abnormalities may be missed. Repeat CT scan with full oral and IV contrast preparation recommended for more complete evaluation, as clinically indicated. Left lower quadrant colostomy. Correlate with surgical history. This correlates with [facility] preliminary report. The CT scanner at [facility] is accredited by the [employer] and the scans are performed using protocols designed to limit radiation exposure to as low as reasonably achievable to attain images of sufficient resolution adequate for diagnostic evaluation.
[2016-08-12] MEDS ORDERED: ABILIFY15 MG ORAL (13:54)
== END 2016-07-16 12:15 | disposition home or self-care (01) | DRG 694 ==
LOC: EDBD 23:11 → EMR 23:54 → 3E 07-15 01:52 → EDBEDREQ 07-15 02:14
DX: N13.2 Hydronephrosis with renal and ureteral calculous obstruction (principal); N20.2 Calculus of kidney with calculus of ureter; F41.8 Other specified anxiety disorders
CPT/HCPCS: 36415; 74176; 74420; 76000; 80053; 81001; 81003; 82150; 83690; 85025; 85730; 87086; 94003; 94150; J2250; J2405

== ENCOUNTER → 2016-08-13 | Day surgery (SDC) | payer MEDICARE, OTHER ==
[~2016-08-13] VITALS: Ht 190.5 cm; Wt 69.4 kg
[2016-08-13] VITALS (10 sets, daily range): BP systolic 104–133; BP diastolic 47–84
[~2016-08-13] MED LIST: ABILIFY15 MG ORAL; ABILIFY2 MG ORAL; Dexamethasone 4mg/ml vial ONE; Hydromorphone 0.5mg/0.5ml inj IVP PRN; Isovue-M 300 INJ ONE; Ketorolac 30mg Inj IV PRN; NS Irrig 1000ml ONE; NS Irrig 4000ml IRRIG ONE; Norco 5mg/325mg tab ORAL PRN; Phenazopyridine 200mg tab ORAL SCH; Sterile Water For Irrig 2000ml IRRIG ONE; ceFAZolin 1gm/50ml Premix 50 ML IV ONE; fentaNYL 100 mcg/2 mL IV PRN
--- NOTE | 2016-08-13 12:12 | Pre-Procedure Note/Attestation ---
Pre-Procedure Note/Attestation Complete Prior to Procedure Planned Procedure: left Procedure Narrative: cysto, left ureteroscopy with laser lithotrispy and stent exchange Indications for Procedure Pre-Operative Diagnosis: left ureteral stone Attestation I attest that I discussed the nature of the procedure; its benefits; risks and complications; and alternatives (and the risks and benefits of such alternatives ), prior to the procedure, with the patient (or the patient's legal advertising representative). I attest that, if there was a reasonable possibility of needing a blood transfusion, the patient (or the patient's legal advertising representative) was given the [facility] standardized written summary, pursuant to the Jamie Noreen Blood Safety Act ([place] Health and Safety Code # 1645, as amended). I attest that I re-evaluated the patient just prior to the surgery and that there has been no change in the patient's H&P, except as documented below: Casimiro Damian M.D. Aug 13, 2016 12:12
--- NOTE | 2016-08-13 13:12 | Anethesia Preoperative Eval ---
Anesthesia Pre-op PMH/ROS General Date of Evaluation: Aug 13, 2016 Time of Evaluation: 11:55 Anesthesiologist: Martin ASA Score: ASA 2 Mallampati Score Class I : Soft palate, uvula, fauces, pillars visible Class II: Soft palate, uvula, fauces visible Class III: Soft palate, base of uvula visible Class IV: Only hard plate visible Mallampati Classification: Class I Surgeon: Rickie Diagnosis: Kidney Stones Surgical Procedure: Laser Lithotripsy Anesthesia History: none Family History: no anesthesia problems Allergies: Coded Allergies: DEXTROMETHORPHAN (Verified Adverse Reaction, Severe, Tremor , 08/12/16) DIPHENHYDRAMINE (Verified Adverse Reaction, Severe, Tremor , 08/12/16) PSEUDOEPHEDRINE (Verified Adverse Reaction, Severe, Tremor , 08/12/16) Medications: see eMAR Past Medical History Cardiovascular: Denies: CAD, HTN, [place], arrhythmia, other, valve dz Pulmonary: Denies: COPD, ZOIE, asthma, other Gastrointestinal/Genitourinary: Denies: CRI, ESRD, GERD, other Neurologic/Psychiatric: Reports: depression/anxiety HEENT: Denies: [place] (L), [place] (R), cataract (L), cataract (R), glaucoma, other Hematology/Immune: Denies: DVT, anemia, bleeding disorder, other Anesthesia Pre-op Phys. Exam Physician Exam Last Vital Signs Date Time Temp Pulse Resp B/P Pulse Ox O2 Delivery O2 Flow Rate FiO2 08/13/16 10:48 97.0 62 18 128/72 100 Room Air JESUS ABAD M.D. Aug 13, 2016 13:12
--- NOTE | 2016-08-13 13:40 | Brief Operative Note ---
Immediate Post Operative Note Operative Note Pre-op Diagnosis: left ureteral stone Procedure: left ureteroscopy with laser lithotripsy and stent exchange. Post-op Diagnosis: same as pre-op Findings: consistent w/pre-op dx studies Surgeon: francisco j Manufacturing Engineering Director: daniel (short) Anesthesiologist: moo Anesthesia: general Specimen: yes Complications: none Condition: stable Estimated Blood Loss: none Drains: other - 6x24 jj stent Casimiro Damian M.D. Aug 13, 2016 13:40
--- NOTE | 2016-08-13 14:02 | Immediate Post-Op Evaluation ---
Immediate Post-Op Evalulation Immediate Post-Op Evalulation Procedure: Leser Lithotripsy Date of Evaluation: Aug 13, 2016 Time of Evaluation: 14:01 IV Fluids: 500 Blood Products: 0 Estimated Blood Loss: 0 Urinary Output: 0 Blood Pressure Systolic: 120 Blood Pressure Diastolic: 80 Pulse Rate: 80 Respiratory Rate: 20 O2 Sat by Pulse Oximetry: 99 Temperature (Fahrenheit): 98 Pain Score (1-10): 1 Nausea: No Vomiting: No Complications na Patient Status: awake Drug: Ancef 1G Given Within 1 Hr of Incision: Yes Time Given: 12:15 JESUS ABAD M.D. Aug 13, 2016 14:02
--- NOTE | 2016-08-13 14:03 | 48 Hour Post Anesthesia Eval ---
Post Anesthesia Evaluation Procedure: Leser Lithotripsy Date of Evaluation: Aug 13, 2016 Time of Evaluation: 15:09 Blood Pressure Systolic: 120 0: 80 Pulse Rate: 76 Respiratory Rate: 20 Temperature (Fahrenheit): 98 O2 Sat by Pulse Oximetry: 98 Nausea: No Vomiting: No Pain Intensity: 2 Hydration Status: adequate Cardiopulmonary Status: stable Mental Status/LOC: patient returned to baseline Follow-up Care/Observations: na Post-Anesthesia Complications: na Follow-up care needed: N/A JESUS ABAD M.D. Aug 13, 2016 14:03
--- NOTE | 2016-08-13 23:27 | Operative Note - Dictated ---
DATE OF OPERATION: 08/13/2016 PRIMARY SURGEON: Casimiro Damian M.D. PREOPERATIVE DIAGNOSIS: Left ureteral stone. POSTOPERATIVE DIAGNOSIS: Left ureteral stone. PROCEDURE PERFORMED: Cystoscopy, left ureteroscopy with laser lithotripsy, stone manipulation, left retrograde pyelogram, and left double-J stent exchange. ANESTHESIA: General. EBL: Less than 10 mL. COMPLICATIONS: None. DRAINS: 6 x 24 double-J stent. SPECIMEN: Stone fragments. PREOPERATIVE HISTORY: The patient is a very pleasant 31-year-old gentleman, who was admitted to [facility] in late 2015, diagnosed with an 8 mm distal ureteral stone with significant obstruction. He urgently had a stent placed, as the laser was not available on an on-call fashion on the weekend. The patient had subsequent pyelonephritis due to the stone as well. He underwent antibiotic treatment and after about three weeks, he was seen in followup in the set up for elective lithotripsy. The patient was counseled on the risks and benefits of the procedure. Risks including, but not limited to, bleeding, infection, bladder injury, ureteral injury, and urethral injury. The patient understood the risks of retained stone fragments and need for further procedures. The patient understood the risks, signed the consent, and was taken to the operating room. OPERATIVE PROCEDURE: The patient was brought to the operating room where general anesthesia was achieved easily. He was placed in the dorsal lithotomy position and all pressure points were padded. The perineum was prepped and draped in sterile fashion. He received 1 g of intravenous Ancef as preop antibiotics. The patient was placed in the dorsal lithotomy position and the 23-Barbadian cystoscope sheath was placed into the urethra, anterior and posterior urethra were normal. The bladder was entered showing normal anatomical ureteral orifices with a left ureteral stent in place. Acid Regenerator fluoroscopy showed good positioning. The ureteral stent was grasped with an alligator forceps and brought out through the tip of the urethra and a double floppy guidewire was passed over the stent, removal of the stent, but keeping the wire in place. A semi-rigid ureteroscope was then advanced through the urethra into the ureter. Once a intravesical ureter had been navigated, a large yellow stone fragment was seen consistent with a previous CT scan localization. A 365 micron laser fiber was used to break the stone up into several small pieces. Approximately three or four passes of the ureteroscope and a 1.9-Barbadian tipless basket was used to extract all the stone fragments from the distal ureter. The ureteroscope was then removed and the cystoscope was replaced and using the pre-existing guidewire, a 6 x 24 double-J stent was placed. Before the wire was removed, a retrograde pyelogram was shot using an open-ended ureteral catheter showing mild hydronephrosis, but no filling defects and no extravasation of contrast. A good coil was seen on the stent in the collecting system under fluoroscopy and a good coil was seen under direct vision in the bladder. The bladder was then emptied and the patient was woken up and taken to recovery room in stable fashion. I was present for the entire case. All instrument counts were correct at the end of the case. PLAN: 1. The patient will go home today after voiding. 2. Followup in three to five days for stent removal. 3. Followup on stone analysis and plan for stone prevention workup. Casimiro Damian DR: DEXTER JOB#: [id number] CC:
[2016-08-22 09:14] LABS: CA OXALATE DIHYDRATE 20 % (.); CA OXALATE MONODYRD 70 % (.); STONE COLOR Brown (.)
--- NOTE | 2016-08-26 14:10 | Diagnostic Imaging Report ---
Indications: Left flank pain, obstructive left ureterolithiasis, left retrograde pyelogram and stent placement Technique: Both procedures including fluoroscopy performed by Dr. Damian. Portable intraoperative AP spot film images of the left kidney and ureter obtained. Findings: Comparison: 07/15/2016 Initial image demonstrates removal of previously placed left ureteral stent, guidewire extending through left ureter into left renal collecting system. Subsequent images demonstrate replacement of left ureteral stent, extending from the left renal pelvis to the urinary bladder. Injected contrast opacifies mildly dilated left renal collecting system. Impression: Intraprocedural changes as described
== END | disposition home or self-care (01) ==
LOC: SUR 10:09
DX: N13.2 Hydronephrosis with renal and ureteral calculous obstruction (principal); F17.210 Nicotine dependence, cigarettes, uncomplicated
CPT/HCPCS: 52356; 74420; 76000; 82360; J0690; J1100; J2405; Q9967; 94003; 94150